=== PATIENT | female | born 1945 | race Caucasian/White ===

== ENCOUNTER 2022-10-23 03:48 | Emergency (ER) | payer MEDICARE, OTHER ==
[2022-10-23 04:22] LABS: BASOPHILS PERCENT AUTO 0.3 % (0.0-1.5); EOSINOPHILS ABSOLUTE AUTO 0.2 K/uL (0.0-0.7); EOSINOPHILS PERCENT AUTO 2.5 % (0.0-7.0); HEMATOCRIT 26.2 % (36.0-46.0); HEMOGLOBIN 8.4 g/dL (12.0-16.0); LYMPHOCYTES ABSOLUTE AUTO 1.4 K/uL (0.6-2.4); LYMPHOCYTES PERCENT AUTO 20.7 % (16.0-40.0); MEAN CORPUSCULAR HEMOGLOBIN 30.8 pg (27.0-32.0); MEAN CORPUSCULAR HGB CONC 32.1 g/dL (31.0-37.0); MONOCYTES ABSOLUTE AUTO 0.9 K/uL (0.0-0.8); MONOCYTES PERCENT AUTO 13.4 % (0.0-15.0); NEUTROPHILS ABSOLUTE AUTO 4.4 K/uL (1.4-5.7); NEUTROPHILS PERCENT AUTO 63.1 % (48.0-80.0); NRBC ABSOLUTE 0 K/uL; PLATELET COUNT,PLT 230 K/uL (150-400); RED BLOOD CELL COUNT 2.73 M/uL (4.30-5.90); WHITE BLOOD CELL COUNT,WBC 6.92 K/uL (4.0-11.0)
[2022-10-23 04:46] LABS: LIPASE 48 U/L (16-77)
[2022-10-23] MEDS ORDERED: Albuterol 0.083% 2.5 MG/3 ML Neb Soln NEB ONE (06:15)
[2022-10-23 06:26] LABS: APPEARANCE,URINE SLT CLOUDY; BILIRUBIN,URINE NEGATIVE (NEGATIVE); COLOR,URINE YELLOW; GLUCOSE,URINE NEGATIVE (NEGATIVE); KETONES,URINE NEGATIVE (NEGATIVE); LEUKOCYTE ESTERASE,URINE MODERATE (NEGATIVE); NITRITE,URINE POSITIVE (NEGATIVE); OCCULT BLOOD,URINE NEGATIVE (NEGATIVE); PH,URINE 6.5 (5.0-8.0); PROTEIN,URINE NEGATIVE (NEGATIVE); UROBILINOGEN,URINE 0.2 EU/dL (<2.0)
[2022-10-23 06:33] LABS: BACTERIA,URINE 4+ (NEGATIVE); EPITHELIAL CELLS,URINE FEW (NONE-FEW); HYALINE CASTS,URINE 0-1 (0-2/LPF)
[2022-10-23 06:34] LABS: MUCUS,URINE LIGHT (NONE-MOD)
== END 2022-10-23 07:06 | disposition home or self-care (01) ==
LOC: MW.ED 03:48
DX: R06.02 Shortness of breath (principal); N39.0 Urinary tract infection, site not specified; D64.9 Anemia, unspecified; Z79.899 Other long term (current) drug therapy
CPT/HCPCS: 36415; 71045; 71045-26; 81001; 83690; 83880; 84484; 85025; 85379; 87086; 87088; 87186; 93005; 93010; 99283; 99285; J7620-GY

== ENCOUNTER 2022-11-02 07:21 | Day surgery (SDC) | payer MEDICARE, OTHER ==
[2022-11-02] MEDS ORDERED: propofoL 50 ML ONE (07:22)
[2022-11-02] MEDS ORDERED: Lactated Ringers 1,000 ML IV SCH ×2 (08:00→09:00)
[2022-11-02] MEDS ORDERED: ePHEDrine 50 MG/ML SDV ONE (08:21)
[2022-11-02] MEDS ORDERED: Dexmedetomidine 200 MCG/2 ML SDV ONE (08:41)
[2022-11-02] MEDS ORDERED: Phenylephrine HCl 0.5 MG/5 ML AMP ONE (08:56)
== END 2022-11-02 10:20 | disposition home or self-care (01) ==
LOC: MW.SDS 07:21
PROVIDERS: ATTEND Surgery
DX: K57.30 Diverticulosis of large intestine without perforation or abscess without bleeding (principal); K29.50 Unspecified chronic gastritis without bleeding; K20.90 Esophagitis, unspecified without bleeding; K31.89 Other diseases of stomach and duodenum; I25.10 Atherosclerotic heart disease of native coronary artery without angina pectoris; D64.9 Anemia, unspecified; R06.02 Shortness of breath; I10 Essential (primary) hypertension; F17.210 Nicotine dependence, cigarettes, uncomplicated; Z79.01 Long term (current) use of anticoagulants; E66.9 Obesity, unspecified; E78.00 Pure hypercholesterolemia, unspecified; Z79.82 Long term (current) use of aspirin; Z79.899 Other long term (current) drug therapy; Z90.710 Acquired absence of both cervix and uterus
CPT/HCPCS: 43239; G0121; J2370; J2704; J7120; 00813; 45378; 99100; J3490

== ENCOUNTER 2025-01-03 19:12 | Emergency (ER) | payer MEDICARE, OTHER ==
[2025-01-03] MEDS: fentaNYL 50 MCG/ML SDV IVPUSH ONE (19:47)
[2025-01-03] MEDS: Ketorolac 30 MG/ML SDV IVPUSH ONE (22:17)
== END 2025-01-03 22:58 | disposition home or self-care (01) ==
LOC: MW.ED 19:12
DX: S42.211A Unspecified displaced fracture of surgical neck of right humerus, initial encounter for closed fracture (principal); I10 Essential (primary) hypertension; I25.10 Atherosclerotic heart disease of native coronary artery without angina pectoris; E66.9 Obesity, unspecified; E78.00 Pure hypercholesterolemia, unspecified; J44.9 Chronic obstructive pulmonary disease, unspecified; Z79.899 Other long term (current) drug therapy; Z90.710 Acquired absence of both cervix and uterus; Z75.9 Unspecified problem related to medical facilities and other health care; W19.XXXA Unspecified fall, initial encounter
CPT/HCPCS: 73030; 73060; 73130; 96374; 96375; 96376; 99283; J1885; J3010; J1171